=== PATIENT | male | born 1950 | race Caucasian/White ===

== ENCOUNTER 2023-10-19 08:53 | Outpatient (CLI) | payer MEDICARE, OTHER, SELFPAY ==
--- NOTE | 2023-11-01 17:11 | WPDSLEEPSTUD ---
Sleep Study Date of Study: 10/19/23 Ordering Provider: Ignacio Doll, ROLLER MACHINE OPERATOR Interpreting Physician: Yolanda Xiao MD Sleep Study Type: Polysomnogram Height: 1.78 m Weight: 107.501 kg Body Mass Index: 34.0 Neck Circumference (inches): 17 Harris: 12 Reason for Sleep Study Hypersomnolence, heavy loud snoring. He was tested twice in the past. The most recent test was 2007. Both were positive for sleep apnea. CPAP causes headaches. He tried a dental appliance which worked for a while but then quit working. He has had complaints from his ex-, his kids and airplane passengers regarding his loud snoring. Sleep History Venancio Noel is a 73-year-old man with excessive daytime sleepiness. He has used CPAP in the past but did not like it as it gave him morning headaches. He also tried an oral device and it worked for a while but then it stopped. He occasionally awakens from sleep feeling short of breath. He frequently wakes at night with heartburn, belching or coughing.??He always snores loudly enough that others complain. He frequently has trouble sleeping when he has a cold. He rarely wakes up gasping for breath during the night. He frequently has breathing problems at night. He rarely sweats excessively at night. He never notices his heart pounding or beating irregularly during the night. He occasionally falls asleep during the day. He occasionally falls asleep involuntarily, never falls asleep while driving. He never experiences loss of muscle tone with strong emotion. He occasionally has daytime difficulty at work due to excessive sleepiness. He never feels paralyzed on waking or falling asleep. He occasionally experiences vivid dreams upon waking or falling asleep. He never feels afraid of going to sleep. He rarely has nightmares. He occasionally recalls his dreams. He rarely has thoughts racing through his mind. He never feels sad, depressed or anxious. He occasionally notices parts of his body jerk. He never kicks during the night. He never feels crawling or aching feelings in his legs. He has had pain in his legs at night secondary to knee surgery. He frequently has morning jaw pain, frequently grinds his teeth at night. He occasional feels bothered by pain during the day, occasional awakened by pain during the night. He frequently wakes up feeling stiff in the morning, and he occasionally wakes feeling sore or achy. He frequently awakens with pain in his neck, spine, or joints. He has some memory problems, he has insomnia, fatigue, headaches and he takes antacids regularly. Normal bedtime is 1 or 2:00 a.m., falling asleep within 30 minutes but sometimes taking up to 2 hours to fall asleep. He typically wakes between 2 and 3 times during the night. While awake, he goes to the bathroom and watches TV. He may be awake for 10 minutes or longer. These awakenings occurred generally in the middle of the night. He does not report a standard wake up time. He typically gets 6 hours of sleep per night. He sometimes takes naps during the day and sometimes a short nap lasting 15 minutes may be refreshing. He is usually drowsy for 1 hour after waking. He feels better in the evening compared to other times of day. Habits:??Tobacco: Former smoker Caffeine: 4-6 cups Alcohol: 1 or 2 per week Recreational substances: none [facility] Past Medical History Medical History (Updated 11/01/23 @ 17:27 by Yolanda Xiao MD) Arthritis History of COVID-29 April 2023 Hypertension Rhinitis Surgical History Surgical History (Updated 11/01/23 @ 17:18 by Yolanda Xiao MD) History of bilateral knee replacement Social History Social History (Updated 11/01/23 @ 17:21 by Yolanda Xiao MD) Smoking status: Former smoker Alcohol intake: current Alcohol use details: 1 or 2 servings per week Medications Medications: Medication list from his office visit 09/13/2023 Pantoprazole
[2023-11-01 17:34] VITALS: BMI 34.0
== END 2023-10-20 06:00 | disposition home or self-care (01) ==
LOC: ANHCSM 08:59
PROVIDERS: Visit Provider Nurse Practitioner Family
DX: G47.30 Sleep apnea, unspecified (principal); G47.33 Obstructive sleep apnea (adult) (pediatric)
CPT/HCPCS: 95810